=== PATIENT | male | born 2000 | race Caucasian/White ===

== ENCOUNTER 2023-03-22 22:35 | Emergency (ER) | payer OTHER, SELFPAY ==
[2023-03-22] MEDS ORDERED: Tetracaine 0.5% PF 4 ML BOT ONE (22:40)
[2023-03-22] MEDS ORDERED: Fluorescein Opthalmic Strip ONE (22:40)
== END 2023-03-22 22:55 | disposition home or self-care (01) ==
LOC: CSHERS 22:35
DX: T15.01XA Foreign body in cornea, right eye, initial encounter (principal); W22.8XXA Striking against or struck by other objects, initial encounter
CPT/HCPCS: 99283